=== PATIENT | male | born 1945 | race Caucasian/White ===

== ENCOUNTER 2018-07-03 03:59 | Emergency (ER) | payer MEDICARE, OTHER ==
[~2018-07-03] VITALS: Ht 175.3 cm; Wt 104.3 kg
[2018-07-03 04:06] VITALS: BP 122/74
--- NOTE | 2018-07-03 04:06 | NUR ---
ED Nurse Note: Pt walked in ER and c/o R ribs pain level 10/10. Skin all intact no tear, no bleeding on R ribs. Pt is AO x 4times, VSS, on room air no distress. ERMD seen Pt at bedside.
[2018-07-03] MEDS ORDERED: Norco 5mg/325mg tab ORAL ONE (04:15)
--- NOTE | 2018-07-03 04:18 | Emergency Room Report ---
History of Present Illness General Chief Complaint: Pain Source: Patient Present Illness HPI Is a 73-year-old male with a history of high blood pressure. He presents with right-sided rib pain. Onset for the last 3-4 days. This occurred after he was leaning against a metal sink. Now his been hurting. Pain is to the front radiating to the ground to the back. Worse with movement. Worse with inspiration. No fever chills. No nausea no vomiting. No trauma. Pain is 7 out of 10. Allergies: Coded Allergies: No Known Allergies (Unverified , 07/03/18) Patient History Past Medical History: see triage record, HTN Past Surgical History: none Pertinent Family History: none Immunizations: other Reviewed Nursing Documentation: PMH: Agreed; PSxH: Agreed Nursing Documentation-PMH Past Medical History: No History, Except For Hx Hypertension: Yes Review of Systems Eye: Denies: eye pain, blurred vision ENT: Denies: ear pain, nose congestion, throat swelling Respiratory: Denies: cough, shortness of breath Cardiovascular: Reports: chest pain; Denies: palpitations Gastrointestinal: Denies: abdominal pain, diarrhea, nausea, vomiting Musculoskeletal: Denies: back pain, joint pain Skin: Denies: rash Neurological: Denies: headache, numbness Endocrine: Denies: increased thirst, increased urine Hematologic/Lymphatic: Denies: easy bruising All Other Systems: negative except mentioned in HPI Physical Exam Vital Signs Date Time Temp Pulse Resp B/P (MAP) Pulse Ox O2 Delivery O2 Flow Rate FiO2 07/03/18 04:01 97.9 78 16 120/78 98 Room Air vitals normal Sp02 EP Interpretation: reviewed, normal General Appearance: well appearing, no apparent distress, alert Head: normocephalic, atraumatic Eyes: bilateral eye PERRL, bilateral eye EOMI ENT: hearing grossly normal, normal pharynx Neck: full range of motion, supple, no meningismus Respiratory: lungs clear, normal breath sounds, other - Right chest with tenderness just beneath the breast area. No rash. Worse with movement. No crepitance. Cardiovascular #1: regular rate, rhythm, no murmur Gastrointestinal: normal bowel sounds, non tender, no mass, no organomegaly, no bruit, non-distended Musculoskeletal: back normal, gait/station normal, normal range of motion Psychiatric: mood/affect normal Skin: warm/dry Medical Decision Making Diagnostic Impression: Primary Impression: Contusion of rib on right side Qualified Codes: S20.211A - Contusion of right front wall of thorax, initial encounter ER Course Patient presents with right rib pain. This is most likely a contusion or strain. No fracture. I see no rash indicate shingles. Pain is pleuritic and reproducible. I medically no evidence of anginal equivalent pain. He also has low risk for PE. Other X-Ray Diagnostic Results Other X-Ray Diagnostic Results : X-Ray ordered: Right ribs series # of Views/Limited Vs Complete: 4 View Indication: Pain EP Interpretation: Yes Interpretation: no dislocation, no soft tissue swelling, no fractures Impression: No acute disease Electronically Signed by: Isaac Reece MD Last Vital Signs Date Time Temp Pulse Resp B/P (MAP) Pulse Ox O2 Delivery O2 Flow Rate FiO2 07/03/18 04:01 97.9 78 16 120/78 98 Room Air Status: improved Disposition: HOME, SELF-CARE Condition: Stable Scripts Ibuprofen* (MOTRIN*) 600 Mg Tablet 600 MG ORAL THREE TIMES A DAY, #30 TAB 0 Refills Prov: Isaac Reece MD 07/03/18 Hydrocodone/Acetaminophen 5-325* (HYDROCODONE/ACETAMINOPHEN 5-325*) 1 Each Tablet 1 TAB ORAL Q6H PRN for For Pain, #15 TAB 0 Refills Prov: Isaac Reece MD 07/03/18 Additional Instructions: Follow-up with your doctor in 7 days. Return if symptom worsen. Isaac Reece MD Jul 03, 2018 04:18
--- NOTE | 2018-07-03 04:35 | NUR ---
ED Nurse Note: Pt went to CT scan.
[2018-07-03] MEDS ORDERED: HYDROCODON-ACE1 EA15 ORAL (05:19)
[2018-07-03] MEDS ORDERED: IBUPROFEN600 MG ORAL (05:19)
[2018-07-03 05:24] VITALS: BP 134/71
--- NOTE | 2018-07-03 05:25 | NUR ---
ED Nurse Note: Pt cleared DC by ERMD. Pt is AO x 4times, VSS, on room air no distress. ID bend removed. DC and Meds instructions given to Pt, Pt understood well. Pt walked out unit with steady gait.
[2018-07-03 05:26] VITALS: BP 134/71
== END 2018-07-03 05:32 | disposition home or self-care (01) ==
LOC: EMR 04:23
DX: S20.211A Contusion of right front wall of thorax, initial encounter (principal); W22.8XXA Striking against or struck by other objects, initial encounter; Y92.9 Unspecified place or not applicable; I10 Essential (primary) hypertension
CPT/HCPCS: 99283